=== PATIENT | female | born 1985 | race Asian ===

== ENCOUNTER 2017-05-24 09:57 | Inpatient (IN) | payer SELFPAY ==
[~2017-05-24] VITALS: Ht 162.6 cm; Wt 74.4 kg
[2017-05-25 00:55] VITALS: BP 95/65
[2017-05-25] MEDS ORDERED: PROMETHAZINE 25 MG/ML VIAL IVP PRN (00:55)
[2017-05-25] MEDS ORDERED: OXYTOCIN 10 UNITS/ML VIAL IM SCH (00:55)
[2017-05-25] MEDS ORDERED: CARBOPROST 250 MCG/ML AMP IM PRN (00:55)
[2017-05-25] MEDS ORDERED: METHYLERGONOVINE 0.2 MG/ML AMP IM PRN ×2 (00:55→17:00)
[2017-05-25] MEDS ORDERED: NALBUPHINE HYDROCHLORIDE 10 MG/ML VIAL IVP PRN (00:55)
[2017-05-25 01:25] LABS: BASOPHILS # (AUTO) 0.1 K/uL (0.00-0.22); BASOPHILS % (AUTO) 0.7 % (0.0-2.0); EOSINOPHILS # (AUTO) 0.2 K/uL (0-0.4); EOSINOPHILS % (AUTO) 1.8 % (0.0-4.0); HEMATOCRIT 36.4 % (36-48); HEMOGLOBIN 11.8 g/dL (12.0-16.0); LYMPHOCYTES % (AUTO) 20.3 % (20.5-51.1); MEAN CORPUSCULAR HEMOGLOBIN 29 pg (27-31); MEAN CORPUSCULAR HGB CONC 32 g/dL (33-37); MEAN CORPUSCULAR VOLUME 88 fL (80-94); MONOCYTES # (AUTO) 0.8 K/uL (0.8-1.0); MONOCYTES % (AUTO) 7.7 % (1.7-9.3); NEUTROPHILS # (AUTO) 6.9 K/uL (1.8-7.7); NEUTROPHILS % (AUTO) 69.5 % (42.2-75.2); PLATELET COUNT (AUTO) 192 K/uL (140-450); RED BLOOD CELL COUNT(AUTO) 4.13 MIL/uL (4.20-5.40); RED CELL DISTRIBUTION WIDTH 13.8 % (11.6-13.7)
[2017-05-25] MEDS: LACTATED RINGERS 1,000 ML IV SCH ×2 (02:10→05:34)
[2017-05-25 02:21] LABS: APPEARANCE,URINE CLEAR (CLEAR); BILIRUBIN,URINE NEGATIVE (NEGATIVE); BLOOD, URINE NEGATIVE (NEGATIVE); COLOR,URINE YELLOW (YELLOW); LEUKOCYTE ESTERASE ,URINE 1+ (NEGATIVE); NITRITE, URINE NEGATIVE (NEGATIVE); PH,URINE 6.5 (5.0-9.0); UGLUCOSE NEGATIVE (NEGATIVE)
[2017-05-25] MEDS: MISOPROSTOL 25 MCG TAB VG PRN ×2 (02:33→07:01)
[2017-05-25] MEDS ORDERED: MISOPROSTOL 25 MCG TAB ONE ×2 (02:38→06:55)
[2017-05-25 02:44] LABS: RBC,URINE 0-5 (RARE) /HPF (0-5)
[2017-05-25] MEDS ORDERED: PREN-546 PO (03:18)
[2017-05-25] MEDS ORDERED: OXYTOCIN 20 UNITS in LACTATED RINGERS 1,000 ML IV SCH (03:20)
[2017-05-25] MEDS ORDERED: AMPICILLIN 2,000 MG in NACL 0.9% 100 ML IV SCH (06:10)
[2017-05-25] MEDS ORDERED: AMPICILLIN 2,000 MG VIAL ONE (06:29)
--- NOTE | 2017-05-25 08:14 | NUR ---
PATIENT HAS BEEN SCREENED AND CATEGORIZED LOW NUTRITION RISK. PATIENT WILL BE SEEN WITHIN 7 DAYS OF ADMISSION. 05/31/[address]
[2017-05-25] MEDS ORDERED: AMPICILLIN 1,000 MG VIAL ONE ×3 (10:22→22:11)
[2017-05-25] MEDS: AMPICILLIN 1,000 MG in NACL 0.9% 50 ML IV SCH (10:34)
[2017-05-25] MEDS ORDERED: ROPIVACAINE 0.2%/NS PREMIX 250 ML EPI ONE (12:15)
[2017-05-25] MEDS ORDERED: ROPIVACAINE 0.2%/NS PREMIX 250 ML EPI SCH (12:35)
[2017-05-25] MEDS ORDERED: OXYTOCIN 10 UNITS/ML VIAL ONE (15:55)
[2017-05-25] MEDS ORDERED: BENZOCAINE/MENTHOL 20%-0.5% 60 GM CAN TP PRN (17:00)
[2017-05-25] MEDS ORDERED: MEASLES, MUMPS, AND RUBELLA 1 VIAL SQVAC PRN (17:00)
[2017-05-25] MEDS ORDERED: CALCIUM POLYCARBOPHIL 625 MG TAB PO SCH (17:00)
[2017-05-25] MEDS ORDERED: HYDROcodone/APAP 5/325 MG 1 TAB TAB PO PRN ×2 (17:00)
[2017-05-25] MEDS ORDERED: TEMAZEPAM 15 MG CAP PO PRN ×2 (17:00)
[2017-05-25] MEDS ORDERED: BISACODYL 10 MG SUPP RC PRN (17:00)
[2017-05-25] MEDS ORDERED: oxyCODONE/APAP 5/325 MG 1 TAB TAB PO PRN ×2 (17:00)
[2017-05-25] MEDS ORDERED: METHYLERGONOVINE 0.2 MG TAB PO PRN (17:00)
[2017-05-25] MEDS ORDERED: SODIUM PHOSPHATE 118 ML ENEM RC PRN (17:00)
[2017-05-25] MEDS ORDERED: SENNA 8.6 MG TAB PO SCH (21:00)
[2017-05-25] MEDS ORDERED: DOCUSATE SOD/SENNA 50/8.6 MG 1 TAB PO SCH (21:00)
[2017-05-25] MEDS ORDERED: BISACODYL 5 MG TABEC PO SCH (21:00)
[2017-05-26] MEDS: AMPICILLIN 1,000 MG in NACL 0.9% 50 ML IV SCH ×2 (02:59→06:12)
[2017-05-26] MEDS ORDERED: AMPICILLIN 1,000 MG VIAL ONE ×2 (03:02→05:33)
[2017-05-26 06:15] LABS: HEMATOCRIT 30.2 % (36-48); HEMOGLOBIN 10.1 g/dL (12.0-16.0)
[2017-05-26 08:19] LABS: RAPID PLASMA REAGIN NON-REACTIVE (Non Reactiv)
[2017-05-26] MEDS ORDERED: DOCUSATE SOD/SENNA 50/8.6 MG 1 TAB PO SCH (21:00)
[2017-05-27] MEDS ORDERED: IBUP-1842 PO (11:34)
== END 2017-05-27 13:50 | disposition home or self-care (01) | DRG 775 ==
LOC: MLD 05-25 00:19 → OBSVTOIN 05-25 00:20 → MFCC 05-25 20:23
PROVIDERS: ADMIT Obstetrics & Gynecology; ATTEND Obstetrics & Gynecology
PROC: 10E0XZZ Delivery of Products of Conception, External Approach (ICD-10-PCS; principal; 2017-05-25)
PROC: 10907ZC Drainage of Amniotic Fluid, Therapeutic from Products of Conception, Via Natural or Artificial Opening (ICD-10-PCS; 2017-05-25)
PROC: 0W8NXZZ Division of Female Perineum, External Approach (ICD-10-PCS; 2017-05-25)
PROC: 00HU33Z Insertion of Infusion Device into Spinal Canal, Percutaneous Approach (ICD-10-PCS; 2017-05-25)
PROC: 3E0R3CZ (ICD-10-PCS; 2017-05-25)
PROC: 3E0234Z Introduction of Serum, Toxoid and Vaccine into Muscle, Percutaneous Approach (ICD-10-PCS; 2017-05-25)
DX: O80 Encounter for full-term uncomplicated delivery (principal); Z23 Encounter for immunization; Z37.0 Single live birth; Z3A.40 40 weeks gestation of pregnancy
CPT/HCPCS: 36415; 51702; 59409; 81001; 85018; 85025; 86592; 86886; 86900; 86901; 87086; 90715; G0378; J0290; J2590; J2795; J7120